=== PATIENT | female | born 1960 | race Caucasian/White ===

== ENCOUNTER → 2022-04-18 14:43 | Outpatient (BNVA) | payer MEDICARE, SELFPAY | PROVIDERS: Visit Provider Nurse Practitioner Family | DX: M25.551 Pain in right hip (principal); F41.9 Anxiety disorder, unspecified; G89.29 Other chronic pain; Z13.6 Encounter for screening for cardiovascular disorders; Z79.899 Other long term (current) drug therapy | CPT/HCPCS: 73502; 80053; 80061; 82306; 82607; 83735; 84439; 84443; 85025 ==

== ENCOUNTER → 2022-05-02 14:12 | Outpatient (BNVA) | payer MEDICARE, SELFPAY | PROVIDERS: Visit Provider Nurse Practitioner Family | DX: M41.86 Other forms of scoliosis, lumbar region (principal); G89.29 Other chronic pain; M54.50 Low back pain, unspecified | CPT/HCPCS: 72100 ==

== ENCOUNTER → 2024-01-29 13:06 | Outpatient (BNVA) | payer MEDICARE, SELFPAY | PROVIDERS: PCP Nurse Practitioner Family; Visit Provider Nurse Practitioner Family | DX: F41.9 Anxiety disorder, unspecified (principal); F32.A Depression, unspecified; I10 Essential (primary) hypertension; E78.5 Hyperlipidemia, unspecified; L03.90 Cellulitis, unspecified; B89 Unspecified parasitic disease | CPT/HCPCS: 80053; 80061; 84443; 85025 ==

== ENCOUNTER → 2024-02-07 09:32 | Outpatient (BNVA) | payer MEDICARE, SELFPAY | PROVIDERS: PCP Nurse Practitioner Family; Visit Provider Nurse Practitioner Family | DX: L98.9 Disorder of the skin and subcutaneous tissue, unspecified (principal); R73.9 Hyperglycemia, unspecified; I10 Essential (primary) hypertension; R60.9 Edema, unspecified; R06.09 Other forms of dyspnea; R94.31 Abnormal electrocardiogram [ECG] [EKG]; F17.200 Nicotine dependence, unspecified, uncomplicated; E78.5 Hyperlipidemia, unspecified; F41.9 Anxiety disorder, unspecified; B89 Unspecified parasitic disease | CPT/HCPCS: 83036; 83880; 87177; 87209; 93005 ==

== ENCOUNTER → 2024-02-18 15:35 | Outpatient (BNVA) | payer MEDICARE, SELFPAY | PROVIDERS: PCP Nurse Practitioner Family; Visit Provider Nurse Practitioner Family | DX: I50.9 Heart failure, unspecified (principal); R06.09 Other forms of dyspnea; I10 Essential (primary) hypertension; R06.02 Shortness of breath; F17.200 Nicotine dependence, unspecified, uncomplicated; J45.909 Unspecified asthma, uncomplicated; R94.31 Abnormal electrocardiogram [ECG] [EKG]; E78.5 Hyperlipidemia, unspecified; E11.9 Type 2 diabetes mellitus without complications | CPT/HCPCS: 93005 ==

== ENCOUNTER 2024-02-28 13:00 | Outpatient (CLI) | payer MEDICARE, SELFPAY ==
--- NOTE | 2024-02-28 13:00 | CT_ITS ---
WS: [id number] LDCT LUNG CANCER SCREENING HISTORY: screening TECHNIQUE: Axial imaging performed from the apices to 1 cm below the costophrenic angles. Coronal and sagittal reformats are submitted with axial MIP series. All CT scans at [facility] use at least one of these dose optimization techniques: automated exposure control; mA and/or kV adjustment per patient size (includes targeted exams where dose is matched to clinical indication); or iterativ e reconstruction. DLP: 40.21 mGy.cm DIvol: Mean CTDIvol: 0.70 (mGy) COMPARISON: None available. Diagnostic quality: Satisfactory Lungs: Severe emphysema. Component of mild edema may also be present. There is motion artifact. Inter stitial thickening and prominence throughout both lungs. Hazy attenuation and groundglass attenuation . Increasing opacifications in the periphery of both lungs at the lung bases. There is bronchial thic kening and bilateral pleural effusions and Catapres of atelectasis. Mass and consolidation is not exc luded. Heart: Moderate cardiomegaly. Small pericardial effusion.. Other findings: Small amount of fluid in the distal esophagus. Atherosclerosis aorta. Only a small po rtion of the LEFT kidney is visualized and appears atrophied. CT/CT lung screening [id number] IMPRESSION: LUNG-RADS: 4B-Suspicious FOLLOW UP: Chest CT with or without contrast Chest CT with IV contrast needs to be performed at this time. There are multipl e abnormalities in the thorax which need further evaluation including the bilat eral pleural effusions, bronchial thickening and bilateral lower lobe pleural-b ased nodules and atelectasis.
== END 2024-02-28 13:02 | disposition home or self-care (01) ==
PROVIDERS: PCP Nurse Practitioner Family; Visit Provider Nurse Practitioner Family
DX: Z12.2 Encounter for screening for malignant neoplasm of respiratory organs; F17.210 Nicotine dependence, cigarettes, uncomplicated; E87.6 Hypokalemia; I10 Essential (primary) hypertension; J43.9 Emphysema, unspecified; J84.9 Interstitial pulmonary disease, unspecified; J98.09 Other diseases of bronchus, not elsewhere classified; J98.11 Atelectasis
CPT/HCPCS: 71271; 80053; 83880; 85025

== ENCOUNTER 2024-03-06 13:48 | Outpatient (CLI) | payer MEDICARE, SELFPAY | END 2024-03-06 13:49 | disposition home or self-care (01) | PROVIDERS: PCP Nurse Practitioner Family; Visit Provider Nurse Practitioner Family | DX: R07.9 Chest pain, unspecified (principal); R00.0 Tachycardia, unspecified; R06.02 Shortness of breath; I10 Essential (primary) hypertension; E78.5 Hyperlipidemia, unspecified; F17.200 Nicotine dependence, unspecified, uncomplicated; R06.09 Other forms of dyspnea | CPT/HCPCS: 93005; 99204 ==

== ENCOUNTER 2024-03-25 07:10 | Outpatient (CLI) | payer MEDICARE, SELFPAY ==
[2024-03-25 07:28] VITALS: PULSE 107; RESP 18; O2SAT 99
[2024-03-25] MEDS: albuterol 2.5 mg/3 mL Neb INHALATION (07:32)
[2024-03-25 07:33] VITALS: PULSE 104
== END 2024-03-25 07:11 | disposition home or self-care (01) ==
PROVIDERS: PCP Nurse Practitioner Family; Visit Provider Internal Medicine Critical Care Medicine
DX: J43.2 Centrilobular emphysema (principal); R06.09 Other forms of dyspnea; I50.9 Heart failure, unspecified
CPT/HCPCS: 94060; 94618; 94726; 94729; J7613

== ENCOUNTER → 2024-04-03 16:21 | Outpatient (BNVA) | payer MEDICARE, SELFPAY | PROVIDERS: PCP Nurse Practitioner Family; Visit Provider Nurse Practitioner Family | DX: B89 Unspecified parasitic disease (principal); W57.XXXA Bitten or stung by nonvenomous insect and other nonvenomous arthropods, initial encounter | CPT/HCPCS: 86003; 86008; 86618; 86666; 86757; 87177; 87209 ==

== ENCOUNTER 2024-04-15 13:14 | Outpatient (CLI) | payer MEDICARE, SELFPAY ==
--- NOTE | 2024-04-15 13:25 | XRR_ITS ---
PROCEDURE INFORMATION: Exam: XR Chest Exam date and time: 04/15/2024 1:28 PM Age: 63 years old Clinical indication: Condition or disease; Lung condition and disease; Pleural effusion; Other: Not specified; Patient HX: Patient believes she has parasitic worms in body, SOB after doctor prescribed medicine TECHNIQUE: Imaging protocol: Radiologic exam of the chest. Views: 2 views. COMPARISON: CT lung screening [id number] 02/28/2024 1:15 PM FINDINGS: Airway: Airways are patent. Lungs: Lung hyperexpansion, favoring COPD. Lung hyperlucency, favoring emphysema. No consolidations. Pleural spaces: No pleural effusions or pneumothorax. Heart/Mediastinum: Moderate cardiomegaly. Vasculature: Calcified aortic knob. Bones/joints: Moderate multilevel degenerative changes of the spine. No acutely displaced fractures. Soft tissues: No acute soft tissue findings. XR/XR chest 2V* [id number] IMPRESSION: No acute thoracic pathology.
== END 2024-04-15 13:15 | disposition home or self-care (01) ==
LOC: RAD 13:16
PROVIDERS: PCP Nurse Practitioner Family; Visit Provider Internal Medicine Critical Care Medicine
DX: J90 Pleural effusion, not elsewhere classified (principal); J43.2 Centrilobular emphysema; J98.11 Atelectasis; J98.4 Other disorders of lung; I51.7 Cardiomegaly; R06.09 Other forms of dyspnea
CPT/HCPCS: 71046